=== PATIENT | female | born 1980 | race Caucasian/White ===

== ENCOUNTER 2020-02-06 19:49 | Emergency (ER) | payer BC ==
[2020-02-06 19:58] VITALS: BP 142/93; PULSE 114; TEMP 98; BMI 25.0
[2020-02-06] MEDS ORDERED: MAGNESIUM CITRATE 300 ML BOTTLE PO ONE (20:19)
[2020-02-06] MEDS ORDERED: MAGNESIUM CITRATE 300 ML BOTTLE ONE (20:22)
== END 2020-02-06 20:39 | disposition home or self-care (01) ==
LOC: FER 19:49
DX: K59.00 Constipation, unspecified (principal)
CPT/HCPCS: 99283-25

== ENCOUNTER 2020-04-02 18:45 | Emergency (ER) | payer BC ==
[2020-04-02 18:58] VITALS: BP 112/78; PULSE 80; TEMP 99; BMI 25.0
[2020-04-02 19:17] LABS: HCG,QUALITATIVE URINE Negative
[2020-04-02 19:31] LABS: EPITHELIAL CELLS MODERATE /hpf; URINE MUCUS 1+
[2020-04-02] MEDS ORDERED: KETOROLAC TROMETHAMINE 60 MG/2 ML VIAL IM ONE (21:23)
[2020-04-02] MEDS ORDERED: KETOROLAC TROMETHAMINE 60 MG/2 ML VIAL ONE (21:28)
== END 2020-04-02 21:41 | disposition home or self-care (01) ==
LOC: FER 18:45
PROC: 3E033NZ Introduction of Analgesics, Hypnotics, Sedatives into Peripheral Vein, Percutaneous Approach (ICD-10-PCS; principal; 2020-04-02)
DX: R10.9 Unspecified abdominal pain (principal)
CPT/HCPCS: 74176-TC; 81003; 81015; 84703; 87086; 99284-25